=== PATIENT | female | born 1950 | race Caucasian/White ===

== ENCOUNTER 2020-02-27 13:57 | Outpatient (CLI) | payer MEDICARE, OTHER ==
--- NOTE | 2020-02-28 18:56 | Ultrasound Report ---
Reason: INGUINAL AREA LUMP,HX OF ANAL CANCER Procedure Date: 02/27/2020 Accession Number: [id number] / [id number] Procedure: US - Pelvic Limited or F/U CPT Code: Final Report FULL RESULT: EXAM: PELVIS ULTRASOUND, LIMITED EXAM DATE: 02/27/2020 02:30 PM. CLINICAL HISTORY: INGUINAL AREA LUMP, HX OF ANAL CANCER. COMPARISON: None. TECHNIQUE: Real-time scanning was performed with static images obtained. FINDINGS: There is a left inguinal hernia containing mesenteric fat and bowel. The hernia is present when the patient stands erect, and increases in size with Valsalva maneuver. The hernia sac contents self reduce when the patient lies supine. The opening to the hernia sac measures 1.9 cm. The hernia sac measures 3.5 x 0.8 x 2.1 cm in diameter. IMPRESSION: Left inguinal hernia containing mesenteric fat and bowel, spontaneously reducing when the patient lies supine. RADIA
== END 2020-02-27 13:58 | disposition home or self-care (01) ==
LOC: DI 13:57
PROVIDERS: ATTEND Internal Medicine
DX: K40.90 Unilateral inguinal hernia, without obstruction or gangrene, not specified as recurrent (principal); Z85.048 Personal history of other malignant neoplasm of rectum, rectosigmoid junction, and anus
CPT/HCPCS: 76857

== ENCOUNTER 2022-01-01 13:00 | Emergency (ER) | payer MEDICARE, OTHER ==
--- OUTSIDE RECORDS SUMMARY | 2022-01-01 13:22 | EXTERNAL MEDICAL SUMMARY RPT | Continuity of Care Document ---
:1950 Author Organization [facility] Address [address] [place] [address] Phone Allergies No information. Encounters No information. Medications No information. 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
--- NOTE | 2022-01-01 13:28 | ED Physician Documentation ---
History of Present Illness - Stated complaint Stated Complaint: COLOSTOMY ISSUES - History obtained from History obtained from: Patient - Additonal information Additional information: 71-year-old woman had rectal cancer and had diverting colostomy about a month ago. She did not require chemotherapy or radiation. 2 nights ago she had profuse ostomy output but then starting yesterday decreased ostomy output and diffuse abdominal pain with nausea but no vomiting. Has not had to Empty her appliance since yesterday morning. Review of Systems Ten Systems: 10 systems reviewed and negative Constitutional: denies: Fever, Chills Cardiac: reports: Reviewed and negative Respiratory: reports: Reviewed and negative GI: reports: Abdominal Pain, Nausea. 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 - Present Medications Home Medications: Ambulatory Orders Medication Instructions Recorded Confirmed Calcium [Calcio [place]] 600 mg PO BID 07/21/13 06/09/14 Ergocalciferol [Vitamin D2] 50,000 unit PO DAILY 07/21/13 06/09/14 Ferrous Sulfate [Iron] 325 mg PO DAILY 07/21/13 06/09/14 Levothyroxine [Synthroid] 100 mcg PO QDAC 07/21/13 06/09/14 Magnesium 400 mg PO BID 07/21/13 06/09/14 Mometasone Furoate [Elocon] 15 gm TP 07/21/13 06/09/14 Pantoprazole Sodium [Protonix] 40 mg PO BID 07/21/13 06/09/14 Triamcinolone 0.5% Cream [Kenalog] 0 gm TOP BID 07/21/13 06/09/14 Loratadine [Claritin] 10 mg PO 06/09/14 06/09/14 Spironolactone 25 mg PO BID 06/09/14 06/09/14 Furosemide [Lasix] 20 mg PO BID 01/01/22 01/01/22 Losartan [Cozaar] 100 mg PO DAILY 01/01/22 01/01/22 Montelukast Sodium 01/01/22 Oxycodone HCl/Acetaminophen 1 - 2 each PO Q6H PRN #14 tablet 01/01/22 [Percocet 5-325 mg Tablet] Potassium Chloride 10 meq PO 01/01/22 - Allergies Allergies/Adverse Reactions: Allergies Allergy/AdvReac Type Severity Reaction Status Date / Time No Known Drug Allergies Allergy Verified 07/22/13 00:34 - Social History Does the pt smoke?: No Smoking Status: Never smoker Does the pt drink ETOH?: Yes Does the pt have substance abuse?: No - Immunizations Immunizations are current?: Yes - POLST Patient has POLST: No PD ED PE NORMAL - Vitals Vital signs reviewed: Yes - General General: Alert and oriented X 3, No acute distress - HEENT HEENT: PERRL, EOMI - Neck Neck: Supple, no meningeal sign, No bony TTP - Cardiac Cardiac: RRR, No murmur - Respiratory Respiratory: No respiratory distress, Clear bilaterally - Abdomen Abdomen: Other (Diminished but not absent bowel tones, moderate diffuse tenderness. Ostomy appliance was removed and reapplied with patient permission. No fecal obstruction in the stoma. Stoma looks fine.) - Back Back: No CVA TTP, No spinal TTP - Derm Derm: Normal color, Warm and dry - Extremities Extremities: No edema, No calf tenderness / cord - Neuro Neuro: Alert and oriented X 3, Normal speech Results - Vitals Vitals: Vital Signs - 24 hr 01/01/22 13:06 Temperature 36.3 C L Heart Rate 60 Respiratory 14 Rate Blood Pressure 125/74 O2 Saturation 98 Oxygen O2 Source Room air - Labs Labs: Laboratory Tests 01/01/22 01/01/22 14:11 14:11 WBC 7.0 RBC 3.25 L Hgb 10.7 L Hct 32.6 L MCV 100.3 H MCH 32.9 H MCHC 32.8 RDW 14.9 Plt Count 319 MPV 9.0 Neut # (Auto) 5.5 Lymph # (Auto) 0.5 L [place] # (Auto) 0.4 Eos # (Auto) 0.5 Baso # (Auto) 0.1 Absolute Nucleated RBC 0.00 Nucleated RBC % 0.0 Sodium 134 L Potassium 3.3 L Chloride 99 L Carbon Dioxide 25 Anion Gap 10.0 BUN 20 Creatinine 0.6 Estimated GFR (MDRD) 98 Glucose 121 H Calcium 9.3 Total Bilirubin 0.4 AST 12 ALT 12 Alkaline Phosphatase 57 Total Protein 6.7 Albumin 3.3 Globulin 3.4 Albumin/Globulin Ratio 1.0 Lipase 45 - Rads (name of study) CT A/P Radiology: EMP read contemporaneously (1.Post surgical changes from anorectal resection and LLQ colostomy formation. Ill defined soft tissue edema w/ areas of enhancement soft tissue gas are seen at the surgical site extending into the posterior pelvis 2.No signs of bowel obstruction. A large volume of stool is se en in the ascending and ) PD MEDICAL DECISION MAKING - ED course ED course: 71-year-old woman presents with abdominal pain and vomiting. She is a month out from a colostomy placement. Benign exam for the most part normal white count and very unremarkable labs generally. CT as shown and discussed by phone with her surgeon mentioning specifically the pelvic edema and inflammation and small spots of air and he feels this is normal for being in her postsurgical state. Recommends cleaning out with MiraLAX. Departure - Departure Disposition: 01 Home, Self Care Clinical Impression: Constipation, Abdominal pain Condition: Good Record reviewed to determine appropriate education?: Yes Instructions: ED Constipation Prescriptions: Oxycodone HCl/Acetaminophen [Percocet 5-325 mg Tablet] 1 - 2 each PO Q6H PRN #14 tablet PRN Reason: pain Comments: I sent the prescription electronically to the [facility] pharmacy at the [place] [address] and [facility] here in [place]. As discussed, I discussed your case by phone today with Dr. Reyes, your surgeon. He feels that the findings on CT are likely normal given your postoperative state and recommends that you take the MiraLAX as he discussed. Return for new or worsening symptoms and call his office tomorrow Wednesday to check in and see how its going. I am prescribing a short course of narcotic pain medication for you. These are potentially dangerous and addictive medications that should be used carefully. These medications may constipate you. Take an erxm-huq-gfffoff stool softener (docusate) twice daily with plenty of water while taking these medications. If you go 24 hours without a bowel movement, take eopn-thf-qdykgfw miralax, per package instructions. Do not drink or drive while taking these medications. If you received narcotic or sedating medications while in the emergency department, do not drive for 24 hours. Store this medication in a safe, secure place and out of reach of children. It is a violation of federal law to give or sell this medication to another person or to use in a manner other than prescribed. The ED will not refill narcotic prescriptions, including prescriptions lost or stolen. To dispose of unwanted medications: 1. [facility] at [address] in [place] has a medication drop box. They accept prescription medications (in pill form) Wednesday through Wednesday 9:00 a.m. to 5:00 p.m. 2. The [facility] accepts prescription medications (in pill form only) for disposal year round. Call for more information. 3. Contact the [facility] for the next [facility] sponsored prescription drug collection event. , [phone], or [phone]; Note that many narcotic pain relievers also contain Tylenol/acetaminophen. Please ensure that your total dose of acetaminophen from all sources does not exceed 3 g (3000 mg) per day.
[2022-01-01] MEDS ORDERED: HYDROmorphone 1 MG/ML CARPUJECT IVP STA ×2 (14:03→15:33)
[2022-01-01 14:16] LABS: BASOPHILS # (AUTO) 0.1 10^3/uL (0.0-0.1); BASOPHILS % (AUTO) 0.7 %; EOSINOPHILS # (AUTO) 0.5 10^3/uL (0.0-0.7); EOSINOPHILS % (AUTO) 7.3 %; HCT - HEMATOCRIT 32.6 % (37.0-47.0); HGB - HEMOGLOBIN 10.7 g/dL (12.0-16.0); LYMPHOCYTES # (AUTO) 0.5 10^3/uL (1.5-3.5); LYMPHOCYTES % (AUTO) 7.3 %; MEAN CORPUSCULAR HEMOGLOBIN 32.9 pg (27.0-31.0); MEAN CORPUSCULAR HGB CONC 32.8 g/dL (32.0-36.0); MEAN CORPUSCULAR VOLUME 100.3 fL (81.0-99.0); MONOCYTES # (AUTO) 0.4 10^3/uL (0.0-1.0); NEUTROPHILS # (AUTO) 5.5 10^3/uL (1.5-6.6); NEUTROPHILS % (AUTO) 79.1 %; PLT - PLATELET COUNT 319 10^3/uL (130-450); RED BLOOD COUNT 3.25 10^6/uL (4.20-5.40); RED CELL DISTRIBUTION WIDTH 14.9 % (12.0-15.0)
[2022-01-01] MEDS ORDERED: IOVERSOL 320 100 ML VIAL IVP ONE ×2 (14:20→16:27)
[2022-01-01 14:29] LABS: ALBUMIN 3.3 g/dL (3.2-5.5); BILIRUBIN,TOTAL 0.4 mg/dL (0.2-1.0); CALCIUM 9.3 mg/dL (8.5-10.3); CREATININE 0.6 mg/dL (0.4-1.0); POTASSIUM 3.3 mmol/L (3.5-5.0); TOTAL PROTEIN 6.7 g/dL (6.7-8.2)
--- NOTE | 2022-01-01 15:43 | CT Report ---
PROCEDURE: Abdomen/Pelvis W INDICATIONS: IV only, decreased ostomy output, pain CONTRAST: IV CONTRAST: Optiray 320 ml: 100 PO CONTRAST: *NO PO CONTRAST TECHNIQUE: After the administration of intravenous contrast, 5 mm thick sections acquired from the diaphragms to the symphysis. 5 mm thick coronal and sagittal reformats were acquired. For radiation dose reducti on, the following was used: automated exposure control, adjustment of mA and/or kV according to ji ent size. COMPARISON: CT abdomen/pelvis 03/20/2016. CT pelvis 07/22/2018 FINDINGS: Image quality: Excellent. ABDOMEN: Lung bases: Mild dependent atelectasis in the lung bases. Heart size is normal. Solid organs: Liver and spleen are normal in size and enhancement. Gallbladder is unremarkable Ethan iary system is non dilated. Pancreas enhances normally. And 1.3 cm circumscribed hypoattenuating le karsten is seen in the spleen that is new when compared to the prior CT from 2015, most likely benign bu t of uncertain etiology. No adrenal nodules. Kidneys demonstrate normal size and enhancement, withou t hydronephrosis. Peritoneum and bowel: Postsurgical changes are seen from prior anorectal resection and formation of l eft lower quadrant colostomy. Large amount of stool is seen in the ascending and transverse colon wit h a decompressed appearance of the descending colon. Nondilated fluid-filled loops of small bowel are seen in the central abdomen. Mild diffuse edema is seen within the mesentery of uncertain etiology. Bowel loops demonstrate normal wall thickness and caliber. No free fluid or air. Nodes and vessels: No retroperitoneal or mesenteric adenopathy by size criteria. Aorta and inferior vena cava are normal in size. Miscellaneous: No ventral hernias. PELVIS: Genitourinary: Bladder is moderately distended.. The uterus is not visualized and may be absent. Miscellaneous: Ill-defined edema and soft tissue enhancement with foci of gas are seen at the postsur gical site in the posterior pelvis. No inguinal hernias or adenopathy. Bones: Postoperative changes are seen in the spine extending from T9 through L4. T9 compression fract ure is noted of uncertain age. Multilevel spondylolistheses are seen, decreased at the T12-L1 level r elative to the CT from 07/09/2020. IMPRESSION: 1.Post surgical changes from anorectal resection and left lower quadrant colostomy formation. Ill-def ined soft tissue edema with areas of enhancement soft tissue gas are seen at the surgical site extend ing into the posterior pelvis. Recommend correlation with clinical exam findings to exclude infection . 2.No signs of bowel obstruction. A large volume of stool is seen in the ascending and transverse colo n. 3.Extensive post surgical changes within the spine. Mild T9 compression fracture is seen of uncertain age. Reviewed by: Wayne Gomez MD on 01/01/2022 2:41 PM [facility] Approved by: Wayne Gomez MD on 01/01/2022 2:41 PM [facility]I Station ID: [id number]
[2022-01-01 17:25] VITALS: BP 112/70
== END 2022-01-01 17:23 | disposition home or self-care (01) ==
LOC: ED 13:00
DX: K59.00 Constipation, unspecified (principal); I10 Essential (primary) hypertension; Z93.3 Colostomy status
CPT/HCPCS: 36415; 74177; 80053; 83690; 85025; 96374; 96376; 99284; J1170; Q9967

== ENCOUNTER 2022-09-07 12:17 | Emergency (ER) | payer MEDICARE, OTHER ==
[2022-09-07 13:09] VITALS: BP 124/74
== END 2022-09-07 15:29 | disposition left against medical advice (07) ==
LOC: ED 12:17
DX: Z53.29 Procedure and treatment not carried out because of patient's decision for other reasons (principal)

== ENCOUNTER 2022-09-25 13:42 | Outpatient (CLI) | payer MEDICARE, OTHER ==
[2022-09-25 14:08] LABS: CREATININE 0.6 mg/dL (0.4-1.0)
[2022-09-25 14:39] LABS: CALCIUM 8.9 mg/dL (8.5-10.3); POTASSIUM 3.8 mmol/L (3.5-5.0)
== END 2022-09-25 13:43 | disposition home or self-care (01) ==
LOC: LAB 13:42
PROVIDERS: ATTEND Family Medicine
DX: E26.9 Hyperaldosteronism, unspecified (principal)
CPT/HCPCS: 36415; 80048

== ENCOUNTER 2022-10-23 12:36 | Outpatient (CLI) | payer MEDICARE, OTHER | END 2022-10-23 23:59 | disposition critical access hospital (66) | LOC: EMS 12:36 | DX: K62.5 Hemorrhage of anus and rectum (principal) | CPT/HCPCS: A0425; A0429 ==

== ENCOUNTER 2022-10-23 12:52 | Emergency (ER) | payer MEDICARE, OTHER ==
--- NOTE | 2022-10-23 13:11 | ED Physician Documentation ---
History of Present Illness - Stated complaint Stated Complaint: RECT. BLEEDING - Additonal information Additional information: Patient is 72-year-old female presenting to the emergency department with chief complaint of rectal bleeding, fatigue and near syncope. She reports a past medical significant for total colectomy with ostomy placement approximately 1 year ago for colorectal carcinoma. Additionally was hospitalized for back surgery in September due to malalignment of previously placed hardware. Comes to the emergency department today with 1 week history of bright red blood per rectum. Reports that she did see her primary care doctor and then was contacted last night and instructed to come to the emergency department due to concern for blood loss. She reports significant pain in her lower extremities however states that this is essentially unchanged from her baseline pain which she has had for several months. She denies lightheadedness, dizziness, heart palpitations, chest pain at this time. 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 - Present Medications Home Medications: Ambulatory Orders Medication Instructions Recorded Confirmed Levothyroxine [Synthroid] 100 mcg PO QDAC 07/21/13 08/19/22 Magnesium 400 mg PO BID 07/21/13 08/19/22 Mometasone Furoate [Elocon] 15 gm TP DAILY PRN 07/21/13 08/19/22 Triamcinolone 0.5% Cream [Kenalog] 0 gm TOP BID PRN 07/21/13 08/19/22 Spironolactone 25 mg PO TID 06/09/14 08/19/22 Losartan [Cozaar] 75 mg PO DAILY 01/01/22 08/19/22 Montelukast Sodium 10 mg PO DAILY 01/01/22 08/19/22 Potassium Chloride 10 meq PO TID 01/01/22 08/19/22 Calcium Crb,Cit/D3/Min34/Mamie 1 tab PO BID 01/15/22 08/19/22 [Citracal Plus Bone Density Tab] Acetaminophen [Acetaminophen Extra 500 mg PO QID PRN #40 tablet 05/29/22 08/19/22 Strength] dexAMETHasone [Decadron] 4 mg PO DAILY #5 tablet 05/29/22 08/19/22 valACYclovir [Valtrex] 1,000 mg PO TID 6 Days #36 tablet 05/29/22 08/19/22 - Allergies Allergies/Adverse Reactions: Allergies Allergy/AdvReac Type Severity Reaction Status Date / Time atenolol Allergy Anaphylaxis Verified 10/23/22 13:23 morphine Allergy Cramps Verified 10/23/22 13:23 - Social History Does the pt smoke?: No Smoking Status: Never smoker Does the pt drink ETOH?: Yes Does the pt have substance abuse?: No - Immunizations Immunizations are current?: Yes - POLST Patient has POLST: No PD ED PE NORMAL - Vitals Vital signs reviewed: Yes - General General: Alert and oriented X 3, No acute distress - HEENT HEENT: Atraumatic - Neck Neck: Supple, no meningeal sign - Cardiac Cardiac: RRR - Respiratory Respiratory: No respiratory distress - Abdomen Abdomen: Normal bowel sounds, Non tender - Female Female : Other (Patient has a large open wound on her sacrum with active dark red blood/bleeding.) Results - Vitals Vitals: Oxygen O2 Source Room air - Labs Labs: Laboratory Tests 10/23/22 10/23/22 10/23/22 13:28 13:28 13:28 WBC 10.8 RBC 2.42 L Hgb 6.8 L* Hct 22.6 L MCV 93.4 MCH 28.1 MCHC 30.1 L RDW 18.4 H Plt Count 434 MPV 8.9 Neut # (Auto) 8.8 H Lymph # (Auto) 1.0 L [place] # (Auto) 0.6 Eos # (Auto) 0.1 Baso # (Auto) 0.1 Absolute Nucleated RBC 0.00 Nucleated RBC % 0.0 PT 11.6 INR 1.0 Sodium 139 Potassium 3.2 L Chloride 98 L Carbon Dioxide 29 Anion Gap 12.0 BUN 30 H Creatinine 0.6 Estimated GFR (MDRD) 98 Glucose 105 H Lactic Acid Calcium 8.5 Total Bilirubin 0.4 AST 14 ALT 16 Alkaline Phosphatase 56 Total Creatine Kinase 57 Troponin I High Sens Total Protein 6.1 L Albumin 2.5 L Globulin 3.6 Albumin/Globulin Ratio 0.7 L Lipase 37 Nasal Adenovirus (PCR) Nasal B. parapertussis DNA (PCR) Nasal Coronavir 229E PCR Nasal Coronavir HKU1 PCR Nasal Coronavir NL63 PCR Nasal Coronavir OC43 PCR Nasal Enterovir/Rhinovir PCR Nasal Influenza B PCR Nasal Influenza A PCR Nasal Parainfluen 1 PCR Nasal Parainfluen 2 PCR Nasal Parainfluen 3 PCR Nasal Parainfluen 4 PCR Nasal RSV (PCR) Nasal B.pertussis DNA PCR Nasal C.pneumoniae (PCR) Justin Human Metapneumo PCR Nasal M.pneumoniae (PCR) Nasal SARS-CoV-2 (PCR) Blood Type Blood Type Recheck Antibody Screen Crossmatch IS Only 10/23/22 10/23/22 10/23/22 13:28 13:28 13:38 WBC RBC Hgb Hct MCV MCH MCHC RDW Plt Count MPV Neut # (Auto) Lymph # (Auto) [place] # (Auto) Eos # (Auto) Baso # (Auto) Absolute Nucleated RBC Nucleated RBC % PT INR Sodium Potassium Chloride Carbon Dioxide Anion Gap BUN Creatinine Estimated GFR (MDRD) Glucose Lactic Acid 0.9 Calcium Total Bilirubin AST ALT Alkaline Phosphatase Total Creatine Kinase Troponin I High Sens 5.4 Total Protein Albumin Globulin Albumin/Globulin Ratio Lipase Nasal Adenovirus (PCR) Nasal B. parapertussis DNA (PCR) Nasal Coronavir 229E PCR Nasal Coronavir HKU1 PCR Nasal Coronavir NL63 PCR Nasal Coronavir OC43 PCR Nasal Enterovir/Rhinovir PCR Nasal Influenza B PCR Nasal Influenza A PCR Nasal Parainfluen 1 PCR Nasal Parainfluen 2 PCR Nasal Parainfluen 3 PCR Nasal Parainfluen 4 PCR Nasal RSV (PCR) Nasal B.pertussis DNA PCR Nasal C.pneumoniae (PCR) Justin Human Metapneumo PCR Nasal M.pneumoniae (PCR) Nasal SARS-CoV-2 (PCR) Blood Type Blood Type Recheck AB POSITIVE Antibody Screen Crossmatch IS Only 10/23/22 10/23/22 13:41 14:05 WBC RBC Hgb Hct MCV MCH MCHC RDW Plt Count MPV Neut # (Auto) Lymph # (Auto) [place] # (Auto) Eos # (Auto) Baso # (Auto) Absolute Nucleated RBC Nucleated RBC % PT INR Sodium Potassium Chloride Carbon Dioxide Anion Gap BUN Creatinine Estimated GFR (MDRD) Glucose Lactic Acid Calcium Total Bilirubin AST ALT Alkaline Phosphatase Total Creatine Kinase Troponin I High Sens Total Protein Albumin Globulin Albumin/Globulin Ratio Lipase Nasal Adenovirus (PCR) NOT DETECTED Nasal B. parapertussis DNA (PCR) NOT DETECTED Nasal Coronavir 229E PCR NOT DETECTED Nasal Coronavir HKU1 PCR NOT DETECTED Nasal Coronavir NL63 PCR NOT DETECTED Nasal Coronavir OC43 PCR NOT DETECTED Nasal Enterovir/Rhinovir PCR NOT DETECTED Nasal Influenza B PCR NOT DETECTED Nasal Influenza A PCR NOT DETECTED Nasal Parainfluen 1 PCR NOT DETECTED Nasal Parainfluen 2 PCR NOT DETECTED Nasal Parainfluen 3 PCR NOT DETECTED Nasal Parainfluen 4 PCR NOT DETECTED Nasal RSV (PCR) NOT DETECTED Nasal B.pertussis DNA PCR NOT DETECTED Nasal C.pneumoniae (PCR) NOT DETECTED Justin Human Metapneumo PCR NOT DETECTED Nasal M.pneumoniae (PCR) NOT DETECTED Nasal SARS-CoV-2 (PCR) NOT DETECTED Blood Type AB POSITIVE Blood Type Recheck Antibody Screen NEGATIVE Crossmatch IS Only See Detail PD Medical Decision Making - ED course Complexity details: reviewed results, d/w patient, d/w senior wind energy consultant Reviewed Lab Results: Patient labs most significant for hemoglobin 6.8. Social Determinants of Health: None Drug Therapy Requiring Monitoring for Toxicity: IV narcotics, Blood transfusion Procedural Risk Factors Specific to Patient: None ED course: Patient is have a 72-year-old female presenting to the emergency department with concern for acute blood loss anemia. Had rectum removed secondary to colorectal cancer November of last year. Since that time has had an open wound in her sacrum. Presents to the emergency department today with active bleeding from this site. Dressing was changed in the emergency department. Hemoglobin at 6.8 is a significant downtrend from patient's baseline of approximately 10.5. 1 unit PRBCs ordered. Patient endorsed for chronic leg pain associated with her chronic back pain. She was given IV Dilaudid for pain control. Monitored carefully in the emergency department. Her care was discussed with Dr. Reyes, general surgery at the [facility]. At this time she will be transferred from our facility to the [facility] for further evaluation and treatment. - Consults Consults: Consulted (name) (Dr. Reyes, surgery [facility]), Discussed case with, Request senior wind energy consultant accept pt in transfer Departure - Departure Disposition: 02 Transfer Acute Care Hosp Clinical Impression: Wound of sacral region Qualifiers: Encounter type: initial encounter Qualified Code(s): S31.000A - Unspecified open wound of lower back and pelvis without penetration into retroperitoneum, initial encounter Anemia Qualifiers: Anemia type: iron deficiency Iron deficiency anemia type: chronic blood loss Qualified Code(s): D50.0 - Iron deficiency anemia secondary to blood loss (chronic) Discharge Date/Time: 10/23/22 19:23
[2022-10-23 13:38] LABS: BASOPHILS # (AUTO) 0.1 10^3/uL (0.0-0.1); BASOPHILS % (AUTO) 0.6 %; EOSINOPHILS # (AUTO) 0.1 10^3/uL (0.0-0.7); HCT - HEMATOCRIT 22.6 % (37.0-47.0); LYMPHOCYTES % (AUTO) 9.5 %; MEAN CORPUSCULAR HEMOGLOBIN 28.1 pg (27.0-31.0); MEAN CORPUSCULAR HGB CONC 30.1 g/dL (32.0-36.0); MEAN CORPUSCULAR VOLUME 93.4 fL (81.0-99.0); MEAN PLATELET VOLUME 8.9 fL (7.9-10.8); MONOCYTES # (AUTO) 0.6 10^3/uL (0.0-1.0); MONOCYTES % (AUTO) 5.8 %; NEUTROPHILS # (AUTO) 8.8 10^3/uL (1.5-6.6); NEUTROPHILS % (AUTO) 81.9 %; PLT - PLATELET COUNT 434 10^3/uL (130-450); RED BLOOD COUNT 2.42 10^6/uL (4.20-5.40); RED CELL DISTRIBUTION WIDTH 18.4 % (12.0-15.0); WHITE BLOOD COUNT 10.8 x10^3/uL (4.8-10.8)
[2022-10-23 13:48] LABS: PT - PROTHROMBIN TIME 11.6 secs (9.9-12.6)
[2022-10-23 13:49] LABS: ALBUMIN 2.5 g/dL (3.2-5.5); ALBUMIN/GLOBULIN RATIO 0.7 (1.0-2.2); BILIRUBIN,TOTAL 0.4 mg/dL (0.2-1.0); CALCIUM 8.5 mg/dL (8.5-10.3); CREATININE 0.6 mg/dL (0.4-1.0); POTASSIUM 3.2 mmol/L (3.5-5.0); TOTAL PROTEIN 6.1 g/dL (6.7-8.2)
[2022-10-23 13:53] LABS: HGB - HEMOGLOBIN 6.8 g/dL (12.0-16.0)
[2022-10-23] MEDS ORDERED: HYDROmorphone 1 MG/ML CARPUJECT IVP STA ×2 (13:53→19:04)
[2022-10-23] MEDS ORDERED: ONDANSETRON 4 MG/2 ML VIAL IVP STA (13:53)
[2022-10-23] MEDS ORDERED: iohexoL-300 100 ML VIAL ONE (14:38)
[2022-10-23 14:43] LABS: B. PARAPERTUSSIS- RESP PCR PAN NOT DETECTED; B. PERTUSSIS- RESP PCR PANEL NOT DETECTED; C. PNEUMONIAE- RESP PCR PANEL NOT DETECTED; CORONAVIRUS 229E-RESP PCR NOT DETECTED; CORONAVIRUS HKU1-RESP PCR NOT DETECTED; CORONAVIRUS NL63-RESP PCR NOT DETECTED; CORONAVIRUS OC43-RESP PCR NOT DETECTED; HUMAN METAPNEUMOVIRUS NOT DETECTED; INFLUENZA A- RESP PCR PANEL NOT DETECTED; INFLUENZA B - RESP PCR PANEL NOT DETECTED; M. PNEUMONIAE- RESP PCR PANEL NOT DETECTED; PARAINFLUENZA VIRUS 1 NOT DETECTED; PARAINFLUENZA VIRUS 2 NOT DETECTED; PARAINFLUENZA VIRUS 3 NOT DETECTED; PARAINFLUENZA VIRUS 4 NOT DETECTED; RHINOVIRUS/ENTEROVIRUS NOT DETECTED; RSV- RESP PCR PANEL NOT DETECTED; SARS-CoV-2 -RESP PCR PANEL NOT DETECTED
--- NOTE | 2022-10-23 16:47 | CT Report ---
PROCEDURE: ABDOMEN/PELVIS W INDICATIONS: abd pain, brbpr CONTRAST: 100ml omni 300 TECHNIQUE: After the administration of IV contrast, 5 mm thick sections acquired from the diaphragms to the symp hysis. 5 mm thick coronal and sagittal reformats were acquired. For radiation dose reduction, the f ollowing was used: automated exposure control, adjustment of mA and/or kV according to patient size. COMPARISON: 01/01/2022 08/03/2014 and 03/20/2016. FINDINGS: Image quality: Diagnostic. Significant Beam hardening artifacts from spinal surgical hardware and le ft hip prosthesis is seen. ABDOMEN: Lung bases: Bibasilar dependent atelectasis is seen. Heart size is normal. Solid organs: Liver and spleen are normal in size and enhancement. Well-circumscribed hypodensity i s again noted involving inferior aspect of spleen unchanged from prior study and likely represent yumiko ign process such as splenic cyst. Gallbladder is within normal limits.. Biliary system is non dilate d. Pancreas enhances normally. No adrenal nodules. There is interval development of marked right-si ded hydronephrosis and hydroureter. Evaluation of bilateral ureters are markedly limited due to signi ficant beam hardening artifacts. Multiple phleboliths are noted in right lower abdomen and pelvis. No definite distal ureteral stone is seen. No left-sided hydronephrosis or hydroureter. Peritoneum and bowel: Bowel loops demonstrate normal wall thickness and caliber. Left-sided colostom y is noted. Large amount of fecal matter throughout the colon is seen suggestive of moderate to sever e constipation. No discrete drainable peritoneal abscess collection. No free fluid or free air. Nodes and vessels: No retroperitoneal or mesenteric adenopathy by size criteria. Aorta and inferior vena cava are normal in size. Miscellaneous: No ventral hernias. PELVIS: Genitourinary: Markedly distended urinary bladder is seen. Bladder wall thickness is normal. No shady cified bladder stone is seen. Miscellaneous: There is a large open wound involving posterior lower perineum dorsal to rectal and an al region with air extending to presacral soft tissue and extensive presacral soft tissue heterogeneo us density. No discrete drainable abscess collection is noted. Bones: There is bony erosive changes along the anterior lower sacrum and coccyx is seen which may rep resent osteomyelitis. Extensive fusion of thoracic and lumbar spine is seen with chronic-appearing co mpression deformity involving T9 vertebral body unchanged from prior study. There is prior left hip a rthroplasty. No suspicious bony lesion. No acute vertebral body compression fracture. IMPRESSION: 1. A large open wound in left posterior perineum communicating with presacral soft tissue with sugges tion of extensive cellulitis involving presacral and peroneal soft tissue and possible osteomyelitis involving lower coccyx. No discrete drainable abscess collection is seen. 2. No normal anus or rectum is identified on this study. Suggestion of moderate to severe constipatio n. 3. Interval development of moderate right-sided hydronephrosis and possible hydroureter. Right ureter is not well visualized due to significant adjacent beam hardening artifact from spinal hardware. No definite obstructing ureteral stone is identified. No left-sided hydronephrosis or hydroureter. 4. Left-sided colostomy in place. No evidence of bowel obstruction. No free fluid or free air. No abhishek ss abnormal bowel wall thickening. Reviewed by: Gregorio Turcios MD on 10/23/2022 4:46 PM PST Approved by: Gregorio Turcios MD on 10/23/2022 4:46 PM PST Station ID: [id number]
[2022-10-23] MEDS ORDERED: POTASSIUM CHLORIDE 20 MEQ/15 ML UDC PO SCH (18:00)
[2022-10-23] MEDS ORDERED: iohexoL-300 100 ML VIAL IVP ONE (18:30)
[2022-10-23 19:21] VITALS: BP 105/70
== END 2022-10-23 19:23 | disposition short-term general hospital (02) ==
LOC: EDUNIT# → EDBD → ED 12:52
DX: S31.000A Unspecified open wound of lower back and pelvis without penetration into retroperitoneum, initial encounter (principal); X58.XXXA Exposure to other specified factors, initial encounter; D50.0 Iron deficiency anemia secondary to blood loss (chronic); I10 Essential (primary) hypertension; Z20.822 Contact with and (suspected) exposure to COVID-19
CPT/HCPCS: 36415; 36430; 74177; 80053; 82550; 83605; 83690; 84484; 85025; 85610; 86850; 86900; 86901; 86920; 87633; 96374; 96376; 99284; 99285; A9270; J1170; P9016; Q9967

== ENCOUNTER 2022-11-03 12:23 | Outpatient (CLI) | payer MEDICARE, OTHER ==
[2022-11-03 12:32] LABS: BASOPHILS # (AUTO) 0.1 10^3/uL (0.0-0.1); BASOPHILS % (AUTO) 0.5 %; EOSINOPHILS # (AUTO) 0.1 10^3/uL (0.0-0.7); EOSINOPHILS % (AUTO) 0.8 %; HCT - HEMATOCRIT 27.6 % (37.0-47.0); HGB - HEMOGLOBIN 9.1 g/dL (12.0-16.0); LYMPHOCYTES # (AUTO) 0.7 10^3/uL (1.5-3.5); LYMPHOCYTES % (AUTO) 6.2 %; MEAN CORPUSCULAR HEMOGLOBIN 29.8 pg (27.0-31.0); MEAN CORPUSCULAR VOLUME 90.5 fL (81.0-99.0); MEAN PLATELET VOLUME 9.2 fL (7.9-10.8); MONOCYTES # (AUTO) 0.7 10^3/uL (0.0-1.0); MONOCYTES % (AUTO) 6.4 %; NEUTROPHILS # (AUTO) 9.6 10^3/uL (1.5-6.6); NEUTROPHILS % (AUTO) 85.7 %; PLT - PLATELET COUNT 464 10^3/uL (130-450); RED BLOOD COUNT 3.05 10^6/uL (4.20-5.40); RED CELL DISTRIBUTION WIDTH 16.9 % (12.0-15.0); WHITE BLOOD COUNT 11.2 x10^3/uL (4.8-10.8)
[2022-11-03 12:52] LABS: CALCIUM 8.4 mg/dL (8.5-10.3); CREATININE 0.7 mg/dL (0.4-1.0); CRP - C-REACTIVE PROTEIN 15.7 mg/dL (0-1.0); POTASSIUM 4.1 mmol/L (3.5-5.0)
== END 2022-11-03 12:24 | disposition home or self-care (01) ==
LOC: LAB.R 12:23
PROVIDERS: ATTEND Internal Medicine Infectious Disease
DX: M86.9 Osteomyelitis, unspecified (principal)
CPT/HCPCS: 80048; 85025; 85651; 86140

== ENCOUNTER 2022-11-09 11:01 | Outpatient (CLI) | payer MEDICARE, OTHER ==
[2022-11-09 11:22] LABS: BASOPHILS # (AUTO) 0.1 10^3/uL (0.0-0.1); BASOPHILS % (AUTO) 0.8 %; EOSINOPHILS # (AUTO) 0.1 10^3/uL (0.0-0.7); EOSINOPHILS % (AUTO) 0.9 %; HCT - HEMATOCRIT 27.1 % (37.0-47.0); HGB - HEMOGLOBIN 8.1 g/dL (12.0-16.0); LYMPHOCYTES # (AUTO) 0.7 10^3/uL (1.5-3.5); LYMPHOCYTES % (AUTO) 5.3 %; MEAN CORPUSCULAR HEMOGLOBIN 28.1 pg (27.0-31.0); MEAN CORPUSCULAR HGB CONC 29.9 g/dL (32.0-36.0); MEAN CORPUSCULAR VOLUME 94.1 fL (81.0-99.0); MEAN PLATELET VOLUME 9.5 fL (7.9-10.8); MONOCYTES # (AUTO) 0.9 10^3/uL (0.0-1.0); MONOCYTES % (AUTO) 6.4 %; NEUTROPHILS # (AUTO) 11.4 10^3/uL (1.5-6.6); NEUTROPHILS % (AUTO) 85.8 %; PLT - PLATELET COUNT 459 10^3/uL (130-450); RED BLOOD COUNT 2.88 10^6/uL (4.20-5.40); RED CELL DISTRIBUTION WIDTH 16.3 % (12.0-15.0); WHITE BLOOD COUNT 13.3 x10^3/uL (4.8-10.8)
[2022-11-09 11:43] LABS: CALCIUM 8.1 mg/dL (8.5-10.3); CREATININE 0.8 mg/dL (0.4-1.0); CRP - C-REACTIVE PROTEIN 13.2 mg/dL (0-1.0); POTASSIUM 4.1 mmol/L (3.5-5.0)
== END 2022-11-09 11:02 | disposition home or self-care (01) ==
LOC: LAB 11:01
PROVIDERS: ATTEND Internal Medicine Infectious Disease
DX: M86.9 Osteomyelitis, unspecified (principal)
CPT/HCPCS: 36415; 80048; 82550; 85025; 86140

== ENCOUNTER 2022-11-17 12:25 | Outpatient (CLI) | payer MEDICARE, OTHER ==
[2022-11-17 12:40] LABS: BASOPHILS # (AUTO) 0.1 10^3/uL (0.0-0.1); BASOPHILS % (AUTO) 0.5 %; EOSINOPHILS # (AUTO) 0.1 10^3/uL (0.0-0.7); EOSINOPHILS % (AUTO) 0.7 %; HCT - HEMATOCRIT 20.4 % (37.0-47.0); LYMPHOCYTES # (AUTO) 0.8 10^3/uL (1.5-3.5); LYMPHOCYTES % (AUTO) 6.3 %; MEAN CORPUSCULAR HEMOGLOBIN 28.8 pg (27.0-31.0); MEAN CORPUSCULAR HGB CONC 31.4 g/dL (32.0-36.0); MEAN CORPUSCULAR VOLUME 91.9 fL (81.0-99.0); MEAN PLATELET VOLUME 9.4 fL (7.9-10.8); MONOCYTES # (AUTO) 0.7 10^3/uL (0.0-1.0); MONOCYTES % (AUTO) 6.1 %; NEUTROPHILS # (AUTO) 10.1 10^3/uL (1.5-6.6); NEUTROPHILS % (AUTO) 85.2 %; PLT - PLATELET COUNT 496 10^3/uL (130-450); RED BLOOD COUNT 2.22 10^6/uL (4.20-5.40); RED CELL DISTRIBUTION WIDTH 16.2 % (12.0-15.0); WHITE BLOOD COUNT 11.9 x10^3/uL (4.8-10.8)
[2022-11-17 13:20] LABS: HGB - HEMOGLOBIN 6.4 g/dL (12.0-16.0)
[2022-11-17 17:58] LABS: CALCIUM 9.2 mg/dL (8.5-10.3); CREATININE 0.9 mg/dL (0.4-1.0); POTASSIUM 4.3 mmol/L (3.5-5.0)
== END 2022-11-17 12:26 | disposition home or self-care (01) ==
LOC: LAB.R 12:25
PROVIDERS: ATTEND Internal Medicine Infectious Disease
DX: M86.9 Osteomyelitis, unspecified (principal)
CPT/HCPCS: 80048; 85025; 86140

== ENCOUNTER 2022-11-17 16:26 | Outpatient (CLI) | payer MEDICARE, OTHER ==
[2022-11-17 16:47] LABS: HCT - HEMATOCRIT 22.6 % (37.0-47.0); MEAN CORPUSCULAR HEMOGLOBIN 27.9 pg (27.0-31.0); MEAN CORPUSCULAR HGB CONC 30.1 g/dL (32.0-36.0); MEAN CORPUSCULAR VOLUME 92.6 fL (81.0-99.0); MEAN PLATELET VOLUME 9.1 fL (7.9-10.8); RED BLOOD COUNT 2.44 10^6/uL (4.20-5.40); RED CELL DISTRIBUTION WIDTH 16.2 % (12.0-15.0); WHITE BLOOD COUNT 14.2 x10^3/uL (4.8-10.8)
[2022-11-17 17:13] LABS: HGB - HEMOGLOBIN 6.8 g/dL (12.0-16.0)
== END 2022-11-17 16:27 | disposition home or self-care (01) ==
LOC: LAB 16:26
PROVIDERS: ATTEND Family Medicine
DX: D64.9 Anemia, unspecified (principal)
CPT/HCPCS: 36415; 85027

== ENCOUNTER 2022-11-17 19:39 | Emergency (ER) | payer MEDICARE, OTHER ==
[2022-11-17] MEDS ORDERED: ALTEPLASE 2 MG VIAL IJ ONE (20:12)
--- NOTE | 2022-11-17 20:22 | ED Physician Documentation ---
History of Present Illness - Stated complaint Stated Complaint: BLOOD TRANSFUSION - Chief complaint Chief Complaint: General - History obtained from History obtained from: Patient, Family - History of Present Illness Timing: Today Pain level max: 0 Pain level now: 0 - Additonal information Additional information: Patient is a 72-year-old female who presents to the emergency department stating that her home health nurse called her tonight to tell her her hemoglobin was low and that she needed to go to the emergency department for a blood transfusion. Patient has a history of anemia in the past. Has required several transfusions in the past. Patient is not lightheaded, dizzy, short of breath, chest pain. She states that she had a recent colon surgery at [facility] in [place] and has a JOSE drain in place. She is not having any fevers, chills. Review of Systems Constitutional: denies: Fever, Chills GI: denies: Vomiting Skin: denies: Rash Musculoskeletal: denies: Neck pain, Back pain Neurologic: denies: Headache PD PAST MEDICAL HISTORY - Past Medical History Cardiovascular: Hypertension Endocrine/Autoimmune: HyPOthyroidism GI: GERD : Frequency - Past Surgical History Past Surgical History: No General: Bowel surgery, Colonoscopy /ASSET PROTECTION MANAGER: Hysterectomy - Present Medications Home Medications: Ambulatory Orders Medication Instructions Recorded Confirmed Levothyroxine [Synthroid] 100 mcg PO QDAC 07/21/13 08/19/22 Magnesium 400 mg PO BID 07/21/13 08/19/22 Mometasone Furoate [Elocon] 15 gm TP DAILY PRN 07/21/13 08/19/22 Triamcinolone 0.5% Cream [Kenalog] 0 gm TOP BID PRN 07/21/13 08/19/22 Spironolactone 25 mg PO TID 06/09/14 08/19/22 Losartan [Cozaar] 75 mg PO DAILY 01/01/22 08/19/22 Montelukast Sodium 10 mg PO DAILY 01/01/22 08/19/22 Potassium Chloride 10 meq PO TID 01/01/22 08/19/22 Calcium Crb,Cit/D3/Min34/Mamie 1 tab PO BID 01/15/22 08/19/22 [Citracal Plus Bone Density Tab] Acetaminophen [Acetaminophen Extra 500 mg PO QID PRN #40 tablet 05/29/22 08/19/22 Strength] dexAMETHasone [Decadron] 4 mg PO DAILY #5 tablet 05/29/22 08/19/22 valACYclovir [Valtrex] 1,000 mg PO TID 6 Days #36 tablet 05/29/22 08/19/22 - Allergies Allergies/Adverse Reactions: Allergies Allergy/AdvReac Type Severity Reaction Status Date / Time atenolol Allergy Anaphylaxis Verified 11/17/22 19:51 - Social History Does the pt smoke?: No Smoking Status: Never smoker Does the pt drink ETOH?: Yes Does the pt have substance abuse?: No - Immunizations Immunizations are current?: Yes - POLST Patient has POLST: No PD ED PE NORMAL - Vitals Vital signs reviewed: Yes - General General: Alert and oriented X 3, No acute distress - HEENT HEENT: Moist mucous membranes - Neck Neck: Supple, no meningeal sign - Cardiac Cardiac: RRR, Strong equal pulses - Respiratory Respiratory: No respiratory distress, Clear bilaterally - Abdomen Abdomen: Soft, Non tender, Non distended - Derm Derm: Warm and dry - Extremities Extremities: No edema - Neuro Neuro: Alert and oriented X 3 - Psych Psych: Normal mood, Normal affect Results - Vitals Vitals: Vital Signs - 24 hr 11/17/22 11/17/22 11/17/22 19:43 21:34 21:50 Temperature 36.9 C 37.2 C 37.5 C Heart Rate 106 H 89 Heart Rate [ 87 Monitoring electrodes] Respiratory 21 12 16 Rate Blood Pressure 113/73 97/72 Blood Pressure 102/63 [Left Brachial artery] O2 Saturation 99 97 97 11/17/22 11/17/22 11/17/22 21:56 22:11 22:29 Temperature 37.5 C 37.4 C 37.4 C Heart Rate Heart Rate [ 87 87 89 Monitoring electrodes] Respiratory 12 12 16 Rate Blood Pressure Blood Pressure 105/70 97/72 98/65 [Left Brachial artery] O2 Saturation 98 97 98 11/17/22 11/17/22 22:45 23:00 Temperature 37.3 C 37.3 C Heart Rate 84 Heart Rate [ 84 Monitoring electrodes] Respiratory 13 12 Rate Blood Pressure 97/56 L Blood Pressure 90/60 [Left Brachial artery] O2 Saturation 98 98 Oxygen O2 Source Room air - Labs Labs: Laboratory Tests 11/17/22 19:59 Blood Type AB POSITIVE Antibody Screen NEGATIVE Crossmatch IS Only See Detail PD Medical Decision Making - ED course Complexity details: reviewed old records, reviewed results, considered differential, d/w patient ED course: 72-year-old female sent in by her primary care provider for a blood transfusion. Hemoglobin 6.8 earlier today. Has chronic anemia. Currently asymptomatic. I did speak with her primary care provider, he will follow-up with the patient as an outpatient. She will receive 1 unit of blood tonight and plan to be discharged if she tolerates that well. Patient did recently have a large perineal wound debridement with skin flap at [facility] in [place]. No fevers. No evidence of infection. Patient will be signed out to the oncoming ED physician, assuming the patient has no reactions to the transfusion, plan will be to discharge at the end of transfusion. Departure - Departure Clinical Impression: Chronic anemia Condition: Good Instructions: ED Anemia Type Not Specified Follow-Up: Idris Nelson MD [Primary Care Provider] - Within 1 week Comments: You did receive a unit of blood tonight. Please follow-up with your doctor for further care. As we discussed if you need further transfusions and are not having symptoms such as shortness of breath, chest pain, lightheadedness or dizziness, these can be arranged with the [facility]. Your doctor can send an order to the [facility] and they can schedule the transfusion for you.
[2022-11-17] MEDS ORDERED: MORPHINE IR 15 MG TABLET PO STA (20:53)
[2022-11-18] VITALS: BP 105/67
--- NOTE | 2022-11-18 00:07 | ED Physician Documentation ---
ED Addendum - Addendum Addendum: 11/18/22 00:06 Patient endorsed to me by Dr. López pending completion of blood transfusion. No acute events during transfusion. Patient is now complete and we will plan to send her home to follow-up outpatient. Impression 1 chronic anemia Condition stable Disposition Home
== END 2022-11-18 00:16 | disposition home or self-care (01) ==
LOC: ED 19:39
DX: D64.9 Anemia, unspecified (principal); M86.9 Osteomyelitis, unspecified
CPT/HCPCS: 36415; 36430; 80048; 85025; 85027; 86140; 86850; 86900; 86901; 86920; 99283; 99285; A9270; J2997; P9016

== ENCOUNTER 2022-11-23 13:24 | Outpatient (CLI) | payer MEDICARE, OTHER ==
[2022-11-23 13:32] LABS: BASOPHILS # (AUTO) 0.1 10^3/uL (0.0-0.1); BASOPHILS % (AUTO) 0.4 %; EOSINOPHILS % (AUTO) 0.2 %; HCT - HEMATOCRIT 23.7 % (37.0-47.0); HGB - HEMOGLOBIN 7.3 g/dL (12.0-16.0); LYMPHOCYTES # (AUTO) 0.7 10^3/uL (1.5-3.5); LYMPHOCYTES % (AUTO) 4.6 %; MEAN CORPUSCULAR HEMOGLOBIN 29.1 pg (27.0-31.0); MEAN CORPUSCULAR HGB CONC 30.8 g/dL (32.0-36.0); MEAN CORPUSCULAR VOLUME 94.4 fL (81.0-99.0); MEAN PLATELET VOLUME 9.3 fL (7.9-10.8); MONOCYTES # (AUTO) 0.6 10^3/uL (0.0-1.0); NEUTROPHILS % (AUTO) 90.2 %; PLT - PLATELET COUNT 550 10^3/uL (130-450); RED BLOOD COUNT 2.51 10^6/uL (4.20-5.40); WHITE BLOOD COUNT 14.4 x10^3/uL (4.8-10.8)
[2022-11-23 13:52] LABS: CALCIUM 9.2 mg/dL (8.5-10.3); CREATININE 0.9 mg/dL (0.4-1.0); CRP - C-REACTIVE PROTEIN 14.8 mg/dL (0-1.0); POTASSIUM 4.2 mmol/L (3.5-5.0)
== END 2022-11-23 13:25 | disposition home or self-care (01) ==
LOC: LAB.R 13:24
PROVIDERS: ATTEND Internal Medicine Infectious Disease
DX: M86.9 Osteomyelitis, unspecified (principal)
CPT/HCPCS: 80048; 85025; 85651; 86140

== ENCOUNTER 2022-11-30 11:28 | Outpatient (CLI) | payer MEDICARE, OTHER ==
[2022-11-30 11:34] LABS: BASOPHILS # (AUTO) 0.1 10^3/uL (0.0-0.1); BASOPHILS % (AUTO) 0.8 %; EOSINOPHILS % (AUTO) 0.3 %; HCT - HEMATOCRIT 23.9 % (37.0-47.0); LYMPHOCYTES # (AUTO) 0.5 10^3/uL (1.5-3.5); LYMPHOCYTES % (AUTO) 3.4 %; MEAN CORPUSCULAR HEMOGLOBIN 27.5 pg (27.0-31.0); MEAN CORPUSCULAR HGB CONC 29.3 g/dL (32.0-36.0); MEAN CORPUSCULAR VOLUME 93.7 fL (81.0-99.0); MEAN PLATELET VOLUME 9.4 fL (7.9-10.8); MONOCYTES # (AUTO) 0.6 10^3/uL (0.0-1.0); MONOCYTES % (AUTO) 4.5 %; NEUTROPHILS # (AUTO) 11.8 10^3/uL (1.5-6.6); NEUTROPHILS % (AUTO) 90.5 %; PLT - PLATELET COUNT 552 10^3/uL (130-450); RED BLOOD COUNT 2.55 10^6/uL (4.20-5.40); RED CELL DISTRIBUTION WIDTH 15.3 % (12.0-15.0); WHITE BLOOD COUNT 13.1 x10^3/uL (4.8-10.8)
[2022-11-30 11:51] LABS: CALCIUM 9.1 mg/dL (8.5-10.3)
== END 2022-11-30 11:29 | disposition home or self-care (01) ==
LOC: LAB.R 11:28
PROVIDERS: ATTEND Internal Medicine Infectious Disease
DX: M86.9 Osteomyelitis, unspecified (principal)
CPT/HCPCS: 80048; 85025; 85651; 86140

== ENCOUNTER 2022-12-07 11:22 | Outpatient (CLI) | payer MEDICARE, OTHER ==
[2022-12-07 11:45] LABS: BASOPHILS # (AUTO) 0.1 10^3/uL (0.0-0.1); BASOPHILS % (AUTO) 0.6 %; EOSINOPHILS # (AUTO) 0.1 10^3/uL (0.0-0.7); EOSINOPHILS % (AUTO) 0.7 %; HGB - HEMOGLOBIN 7.1 g/dL (12.0-16.0); LYMPHOCYTES # (AUTO) 0.7 10^3/uL (1.5-3.5); LYMPHOCYTES % (AUTO) 4.5 %; MEAN CORPUSCULAR HEMOGLOBIN 26.8 pg (27.0-31.0); MEAN CORPUSCULAR HGB CONC 29.6 g/dL (32.0-36.0); MEAN CORPUSCULAR VOLUME 90.6 fL (81.0-99.0); MEAN PLATELET VOLUME 9.6 fL (7.9-10.8); MONOCYTES # (AUTO) 0.7 10^3/uL (0.0-1.0); MONOCYTES % (AUTO) 4.7 %; NEUTROPHILS # (AUTO) 13.2 10^3/uL (1.5-6.6); NEUTROPHILS % (AUTO) 88.9 %; PLT - PLATELET COUNT 635 10^3/uL (130-450); RED BLOOD COUNT 2.65 10^6/uL (4.20-5.40); RED CELL DISTRIBUTION WIDTH 15.3 % (12.0-15.0); WHITE BLOOD COUNT 14.8 x10^3/uL (4.8-10.8)
[2022-12-07 12:00] LABS: CALCIUM 10.1 mg/dL (8.5-10.3); CREATININE 0.9 mg/dL (0.4-1.0); CRP - C-REACTIVE PROTEIN 18.2 mg/dL (0-1.0); POTASSIUM 4.2 mmol/L (3.5-5.0)
== END 2022-12-07 11:23 | disposition home or self-care (01) ==
LOC: LAB 11:22 → LAB.R 11:23
PROVIDERS: ATTEND Family Medicine
DX: M86.9 Osteomyelitis, unspecified (principal)
CPT/HCPCS: 80048; 85025; 85651; 86140

== ENCOUNTER 2022-12-16 08:34 | Emergency (ER) | payer MEDICARE, OTHER ==
[2022-12-16] MEDS ORDERED: ENOXAPARIN 80 MG/0.8 ML SYRINGE SUBQ STA (08:36)
[2022-12-16 08:39] VITALS: BP 127/74
--- NOTE | 2022-12-16 08:39 | ED Physician Documentation ---
PD HPI LOWER EXT INJURY - Stated complaint Stated Complaint: INJECTION - History obtained from History obtained from: Patient, Family - History of Present Illness PD HPI LOW EXT INJURY LOCATION: Right, Lower leg Type of injury: Other (has had swelling of right lower leg, progressing up leg. Seen by PMD/oncologist and had outpt U/S this morning to eval for DVT. Positive DVT proximal right femoral vein. Referred to ER from Imaging to get Lovenox.). No: Fall, Twist Review of Systems Cardiac: denies: Chest pain / pressure Respiratory: denies: Dyspnea, Wheezing PD PAST MEDICAL HISTORY - Past Medical History Cardiovascular: Hypertension Endocrine/Autoimmune: HyPOthyroidism GI: GERD, Other (colorectal cancer with mets. ) : Frequency - Past Surgical History Past Surgical History: No General: Bowel surgery, Colonoscopy /SOA ENGINEER: Hysterectomy - Present Medications Home Medications: Ambulatory Orders Medication Instructions Recorded Confirmed Levothyroxine [Synthroid] 100 mcg PO QDAC 07/21/13 12/14/22 Magnesium 400 mg PO BID 07/21/13 12/14/22 Mometasone Furoate [Elocon] 15 gm TP DAILY PRN 07/21/13 12/14/22 Losartan [Cozaar] 75 mg PO DAILY 01/01/22 12/14/22 Montelukast Sodium 10 mg PO DAILY 01/01/22 12/14/22 Potassium Chloride 10 meq PO TID 01/01/22 12/14/22 Calcium Crb,Cit/D3/Min34/Mamie 1 tab PO TID 01/15/22 12/14/22 [Citracal Plus Bone Density Tab] Acetaminophen [Acetaminophen Extra 500 mg PO QID PRN #40 tablet 05/29/22 12/14/22 Strength] dexAMETHasone [Decadron] 4 mg PO DAILY #5 tablet 05/29/22 12/14/22 valACYclovir [Valtrex] 1,000 mg PO TID 6 Days #36 tablet 05/29/22 12/14/22 - Allergies Allergies/Adverse Reactions: Allergies Allergy/AdvReac Type Severity Reaction Status Date / Time atenolol Allergy Anaphylaxis Verified 12/16/22 08:39 - Social History Does the pt smoke?: No Smoking Status: Never smoker Does the pt drink ETOH?: Yes Does the pt have substance abuse?: No - Immunizations Immunizations are current?: Yes - POLST Patient has POLST: No PD ED PE NORMAL - Vitals Vital signs reviewed: Yes - General General: Alert and oriented X 3, No acute distress, Well developed/nourished - Cardiac Cardiac: RRR, No murmur - Respiratory Respiratory: No respiratory distress, Clear bilaterally - Extremities Extremities: Other (right leg with edema in lower portion, pitting. Some calf tenderness but more right thigh tender. ) - Neuro Neuro: Alert and oriented X 3, No motor deficit, Normal speech Results - Vitals Vitals: Vital Signs - 24 hr 12/16/22 08:35 Temperature 37.0 C Heart Rate 78 Respiratory 20 Rate Blood Pressure 127/74 O2 Saturation 98 Oxygen O2 Source Room air PD Medical Decision Making - ED course Complexity details: considered differential, d/w patient ED course: The patient does have history of cancer and sees an oncologist through the [facility] Dr. Kelly. She has been having swelling of the right leg. She had an ultrasound this morning which showed a proximal femoral DVT by report. She was brought to the ER for initial dose of Lovenox and then will be going to the [facility]. She weighs 57 kg on the bed fully clothed with a balance belt, shoes and a Perez with some urine in legbag as well. Presume more like 53 kg. At approximately 1-1/2 mg/kg, we will go with 80 mg subcu for the Lovenox dosing. She is then set up for further care today at the [facility] and will see the oncologist as well. They are intending to switch to oral anticoagulants according to the . The patient herself was not quite sure. This prescription will be done by the oncologist. Departure - Departure Disposition: 01 Home, Self Care Clinical Impression: DVT, femoral, acute Qualifiers: Laterality: right Qualified Code(s): I82.411 - Acute embolism and thrombosis of right femoral vein Condition: Stable Record reviewed to determine appropriate education?: Yes Comments: To the [facility] as planned this morning. I presume the oncologist will prescribe further anticoagulants and medication. Discharge Date/Time: 12/16/22 09:04
[2022-12-16] MEDS ORDERED: MORPHINE IR 15 MG TABLET PO STA (08:49)
== END 2022-12-16 09:04 | disposition home or self-care (01) ==
LOC: ED 08:34
DX: I82.411 Acute embolism and thrombosis of right femoral vein (principal)
CPT/HCPCS: 96372; 99283; 99284

== ENCOUNTER 2023-01-11 11:46 | Outpatient (CLI) | payer MEDICARE, OTHER | END 2023-01-11 12:19 | disposition hospice, home (50) | LOC: EMS 11:46 | PROVIDERS: ATTEND Family Medicine | DX: Z51.5 Encounter for palliative care (principal); C21.0 Malignant neoplasm of anus, unspecified; Z74.01 Bed confinement status | CPT/HCPCS: A0425; A0428 ==